=== PATIENT | female | born 1965 | race Caucasian/White ===

== ENCOUNTER 2017-05-27 02:10 | Emergency (ER) | payer SELFPAY ==
[2017-05-27 02:21] VITALS: BMI 25.8
[2017-05-27] MEDS ORDERED: ONDANSETRON 4 MG/2 ML VIAL IVPUSH ONE (02:25)
[2017-05-27] MEDS ORDERED: KETOROLAC TROMETHAMINE 15 MG/ML VIAL IVPUSH ONE (02:25)
[2017-05-27] MEDS ORDERED: SODIUM CHLORIDE 1,000 ML IV STA (02:25)
--- NOTE | 2017-05-27 02:28 | PDOC ---
History of Present Illness - General Chief Complaint: Cold Symptoms Stated Complaint: FLU LIKE SYMPTOMS Time Seen by Provider: 05/27/17 02:24 - History of Present Illness Initial Comments: 05/27/17 02:37 Ms. Hemphill is a 51 yo female w/ pmh of DMII, HTN, HLD who presents with 2 day history of body aches, fevers, chills, nausea, and vomiting. She reports she has been unable to keep anything down for the past day and that starting around 7 last night she began to have midline chest pain. She reports it has been constant since it began. The patient denies shortness of breath, headache and dizziness. Denies diarrhea and constipation. Denies dysuria, frequency, urgency and hematuria. Allergies: NKDA Past History - Past Medical History Allergies/Adverse Reactions: Allergies Allergy/AdvReac Type Severity Reaction Status Date / Time No Known Allergies Allergy Verified 05/27/17 02:18 Home Medications: Ambulatory Orders Amlodipine Besylate/Benazepril [Lotrel 5-40 mg Capsule] 1 each PO DAILY Gabapentin [Neurontin] 300 mg PO Q8H 05/05/12 Pioglitazone HCl [Actos] 45 mg PO DAILY@0700 05/05/12 Atorvastatin Ca [Lipitor] 40 mg PO HS 05/27/17 Ferrous Sulfate 325 mg PO DAILY 05/27/17 Pantoprazole Sodium 40 mg PO DAILY 05/27/17 Sitagliptin Phos/Metformin HCl [Janumet 50-1,000 mg Tablet] 1 each PO DAILY 03/03 COPD: No Diabetes: Yes HTN: Yes Hypercholesterolemia: Yes - Suicide/Smoking/Psychosocial Hx Smoking Status: No Smoking History: Never smoked Have you smoked in the past 12 months: No Number of Cigarettes Smoked Daily: 0 Information on smoking cessation initiated: No Hx Alcohol Use: No Drug/Substance Use Hx: No Substance Use Type: None Review of Systems - Review of Systems Comments:: 05/27/17 02:41 GENERAL/CONSTITUTIONAL: +Fever/chills as described. No weakness. HEAD, EYES, EARS, NOSE AND THROAT: No change in vision. No ear pain or discharge. No sore throat. CARDIOVASCULAR: +Midline chest pain. No shortness of breath RESPIRATORY: No cough, wheezing, or hemoptysis. GASTROINTESTINAL: +Nausea with vomiting after eating for the past day. No diarrhea or constipation. GENITOURINARY: No dysuria, frequency, or change in urination. MUSCULOSKELETAL: +Body aches for the last 2 days SKIN: No rash NEUROLOGIC: No headache, vertigo, loss of consciousness, or change in strength/ sensation. ENDOCRINE: No increased thirst. No abnormal weight change HEMATOLOGIC/LYMPHATIC: No anemia, easy bleeding, or history of blood clots. ALLERGIC/IMMUNOLOGIC: No hives or skin allergy. *Physical Exam - Vital Signs Last Vital Signs Temp Pulse Resp BP Pulse Ox 97.9 F 81 18 130/76 97 05/27/17 02:19 05/27/17 02:19 05/27/17 02:19 05/27/17 02:19 05/27/17 02:19 - Physical Exam Comments: 05/27/17 02:43 GENERAL: +Patient appears acutely ill. Awake, alert, and fully oriented HEAD: No signs of trauma, normocephalic, atraumatic EYES: PERRLA, EOMI, sclera anicteric, conjunctiva clear ENT: Auricles normal inspection, hearing grossly normal, nares patent, oropharynx clear without exudates. Moist mucosa NECK: Normal ROM, supple, no lymphadenopathy, JVD, or masses LUNGS: No distress, speaks full sentences, clear to auscultation bilaterally HEART: +Reproducible midline chest pain. Regular rate and rhythm, normal S1 and S2, no murmurs, rubs or gallops, peripheral pulses normal and equal bilaterally. ABDOMEN: Soft, nontender, normoactive bowel sounds. No guarding, no rebound. No masses EXTREMITIES: Normal inspection, Normal range of motion, no edema. No clubbing or cyanosis. NEUROLOGICAL: Cranial nerves II through XII grossly intact. Normal speech, normal gait, no focal sensorimotor deficits SKIN: Warm, Dry, normal turgor, no rashes or lesions noted. ED Treatment Course - LABORATORY CBC & Chemistry Diagram: 05/27/17 02:38 05/27/17 02:38 Medical Decision Making - Medical Decision Making 05/27/17 03:48 Ms. Hemphill is a 51 yo female w/ pmh as described. Patient ill appearing. Workup begun with basic labs as well as cardiac profile, EKG, and troponins for chest pain. - CXR revealed bilateral pneumonia. Labs otherwise grossly wnl. Will admit patient for inpatient ABX treatment under observation as patient currently unable to keep anything down PO. 05/27/17 06:52 Patient signed out to Dr. Aparicio for further evaluation. *DC/Admit/Observation/Transfer Diagnosis at time of Disposition: Pneumonia Qualifiers: Pneumonia type: due to unspecified organism Laterality: bilateral Lung location : unspecified part of lung Qualified Code(s): J18.9 - Pneumonia, unspecified organism - Referrals - Patient Instructions - Post Discharge Activity
--- NOTE | 2017-05-27 02:33 | PDOC ---
Attending Attestation - Medical Decision Making 05/27/17 03:44 EXAM: CHEST PA \T\ LAT HISTORY: Cough and pneumonia COMPARISON: None. FINDINGS: The cardiomediastinal silhouette is normal. Bilateral infiltrates are noted, sparing the upper lobes, suspicious for pneumonia. No pleural effusion.. The bones and soft tissues are normal. IMPRESSION: Suspected bilateral pneumonia. Read by: Dhiraj Watts MD <Ricardo Rodriguez - Last Filed: 05/27/17 03:44> - Resident Resident Name: Richie Arellano - ED Attending Attestation I have performed the following: I have examined & evaluated the patient, The case was reviewed & discussed with the resident, I agree w/resident's findings & plan - HPI HPI: 05/27/17 03:53 Pt comes with cough and SOB and flu like symptoms. She ate cereal and them vomited her lunch up. She was unable to eat sonce, just a bit of soup. Pt works in a [employer] and she states that she was extremely SOB at work. Here she is resting in the bed, breathing easily at rest. - Physicial Exam PE: 05/27/17 03:54 Agree with resident exam - Medical Decision Making 05/27/17 03:54 Pt will be admitted to hospitalist service. Labs and blood cultures pending. IV abx will be given <Nelsy Schulte - Last Filed: 05/27/17 04:03> Attestations - Attestations 05/27/17 03:44 Documentation prepared by Ricardo Rodriguez, acting as medical sales associate for Nelsy Schulte MD. <Ricardo Rodriguez - Last Filed: 05/27/17 03:44>
[2017-05-27] MEDS ORDERED: ONDANSETRON 4 MG/2 ML VIAL ONE (02:47)
[2017-05-27] MEDS ORDERED: KETOROLAC TROMETHAMINE 15 MG/ML VIAL ONE (02:47)
[2017-05-27 02:51] LABS: BASO % 0.1 % (0-2.0); EOS % 2.9 % (0-4.5); HEMOGLOBIN 11.1 GM/dL (10.7-15.3); LYMPH % 17.1 % (8-40); MCH 28.4 pg (25.7-33.7); MCHC 32.6 g/dl (32.0-36.0); MEAN CELL VOLUME 87.2 fl (80-96); MEAN PLT VOLUME 9.3 fl (7.5-11.1); MONO % 3.9 % (3.8-10.2); PLATELET COUNT 171 K/MM3 (134-434); RDW 14.4 % (11.6-15.6); WHITE BLOOD COUNT 6.2 K/mm3 (4.0-10.0)
[2017-05-27 03:10] LABS: ALBUMIN 3.9 g/dl (3.4-5.0); ALK PHOS 69 U/L (45-117); ANION GAP 8 (8-16); BLOOD UREA NITROGEN 36 mg/dL (7-18); CALCIUM 9.1 mg/dL (8.5-10.1); CHLORIDE 107 mmol/L (98-107); CO2 25 mmol/L (21-32); GLUCOSE,RANDOM 89 mg/dL (74-106); POTASSIUM 3.9 mmol/L (3.5-5.1); SGOT/AST 14 U/L (15-37); SGPT/ALT 21 U/L (12-78); SODIUM 140 mmol/L (136-145); TOT PROT 7.2 g/dl (6.4-8.2)
[2017-05-27] MEDS ORDERED: AZITHROMYCIN IVPB 500 MG in DEXTROSE 5%-WATER - 250 ML IVPB ONE (03:43)
[2017-05-27] MEDS ORDERED: CEFTRIAXONE 1 GM in DEXTROSE 5%-WATER - 50 ML IVPB ONE (03:43)
[2017-05-27] MEDS ORDERED: CEFTRIAXONE 1 GM/50 ML BAG ONE (04:01)
[2017-05-27] MEDS ORDERED: AZITHROMYCIN IVPB 250 ML IVPB ONE (04:01)
--- NOTE | 2017-05-27 07:04 | PDOC ---
*Physical Exam - Vital Signs Last Vital Signs Temp Pulse Resp BP Pulse Ox 97.9 F 81 18 130/76 99 05/27/17 02:19 05/27/17 02:19 05/27/17 02:19 05/27/17 02:19 05/27/17 03:06 05/27/17 07:03 51 YOF who has bilateral PNA and n/v, initial vitals wnl. ED Treatment Course - LABORATORY CBC & Chemistry Diagram: 05/27/17 02:38 05/27/17 02:38 - ADDITIONAL ORDERS Additional order review: Laboratory Results 05/27/17 05/27/17 05/27/17 04:00 02:38 02:38 Sodium 140 Potassium 3.9 Chloride 107 Carbon Dioxide 25 Anion Gap 8 BUN 36 H Creatinine 1.0 Creat Clearance w eGFR 58.00 Random Glucose 89 Lactic Acid 0.6 Calcium 9.1 Total Bilirubin 1.0 AST 14 L ALT 21 Alkaline Phosphatase 69 Creatine Kinase 117 Troponin I < 0.02 Total Protein 7.2 Albumin 3.9 05/27/17 02:38 RBC 3.90 MCV 87.2 MCHC 32.6 RDW 14.4 MPV 9.3 Neutrophils % 76.0 Lymphocytes % 17.1 Monocytes % 3.9 Eosinophils % 2.9 Basophils % 0.1 - Medications Given in the ED: ED Medications Discontinued Medications Generic Name Dose Route Start Last Admin Trade Name Freq PRN Reason Stop Dose Admin Sodium Chloride 1,000 mls @ 1,000 mls/hr 05/27/17 02:25 05/27/17 02:53 Normal Saline - IV 05/27/17 03:24 1,000 mls/hr ASDIR STA Administration Azithromycin 500 mg/ Dextrose 250 mls @ 250 mls/hr 05/27/17 03:43 05/27/17 04 :17 IVPB 05/27/17 04:42 250 mls/hr ONCE ONE Administration Ceftriaxone Sodium 1 gm/ 50 mls @ 100 mls/hr 05/27/17 03:43 05/27/17 04:06 Dextrose IVPB 05/27/17 04:12 100 mls/hr ONCE ONE Administration Ketorolac Tromethamine 15 mg 05/27/17 02:25 05/27/17 02:54 Toradol Injection - IVPUSH 05/27/17 02:26 15 mg ONCE ONE Administration Ondansetron HCl 4 mg 02/11/18 02:25 05/27/17 02:54 Zofran Injection IVPUSH 05/27/17 02:26 4 mg ONCE ONE Administration *DC/Admit/Observation/Transfer Diagnosis at time of Disposition: Pneumonia Qualifiers: Pneumonia type: due to unspecified organism Laterality: bilateral Lung location : unspecified part of lung Qualified Code(s): J18.9 - Pneumonia, unspecified organism - Discharge Dispostion Disposition: HOME Condition at time of disposition: Stable Admit: No - Prescriptions Prescriptions: Azithromycin 250 mg PO DAILY #5 tablet - Referrals - Patient Instructions Printed Discharge Instructions: DI for Pneumonia -- Adult Additional Instructions: You were seen in the ER for pneumonia. Your lab work was not concerning, and your vital signs are stable. We believe you are safe to go home and be treated as an outpatient. Please leaf size picker the prescription for antibiotics that we are sending to your pharmacy and take the whole prescription, whether or not you feel better. Take Tylenol or Motrin for pain or fever. Please follow up with your regular doctor or return to the ER for any new or worsening symptoms like chest pain, shortness of breath that does not improve with rest, or other symptoms. - Post Discharge Activity Forms/Work/School Notes: Back to Work
[2017-05-27 07:08] VITALS: TEMP 98.2
--- NOTE | 2017-05-27 08:40 | EKG ---
Test Reason : Blood Pressure : / mmHG Vent. Rate : 072 BPM Atrial Rate : 072 BPM P-R Int : 200 ms QRS Dur : 090 ms QT Int : 396 ms P-R-T Axes : 060 004 050 degrees QTc Int : 433 ms NORMAL SINUS RHYTHM POSSIBLE ANTERIOR INFARCT , AGE UNDETERMINED ABNORMAL ECG NO PREVIOUS ECGS AVAILABLE Confirmed by BEN FARNSWORTH MD ([id number]) on 05/27/2017 8:40:07 AM Referred By: Confirmed By:BEN FARNSWORTH MD
[2017-05-27 08:44] VITALS: BP 128/72; PULSE 83
== END 2017-05-27 10:15 | disposition home or self-care (01) ==
LOC: JER 02:10
PROC: 3E0337Z Introduction of Electrolytic and Water Balance Substance into Peripheral Vein, Percutaneous Approach (ICD-10-PCS; principal; 2017-05-27)
PROC: 3E03329 Introduction of Other Anti-infective into Peripheral Vein, Percutaneous Approach (ICD-10-PCS; 2017-05-27)
PROC: 3E03329 Introduction of Other Anti-infective into Peripheral Vein, Percutaneous Approach (ICD-10-PCS; 2017-05-27)
PROC: 3E033GC Introduction of Other Therapeutic Substance into Peripheral Vein, Percutaneous Approach (ICD-10-PCS; 2017-05-27)
PROC: 3E0333Z Introduction of Anti-inflammatory into Peripheral Vein, Percutaneous Approach (ICD-10-PCS; 2017-05-27)
DX: J18.9 Pneumonia, unspecified organism (principal); I10 Essential (primary) hypertension; E11.9 Type 2 diabetes mellitus without complications; Z79.84 Long term (current) use of oral hypoglycemic drugs; E78.00 Pure hypercholesterolemia, unspecified
CPT/HCPCS: 36415; 71046-TC-FY; 80053; 82550; 83605; 84484; 85025; 87040; 93005; 93010; 99285-25

== ENCOUNTER 2019-04-04 11:23 | Emergency (ER) | payer SELFPAY ==
[2019-04-04 11:46] VITALS: BMI 25.1
--- NOTE | 2019-04-04 11:49 | PDOC ---
History of Present Illness - General Chief Complaint: Pain Stated Complaint: ABDOMINAL PAIN Time Seen by Provider: 04/04/19 11:25 History Source: Patient Exam Limitations: No Limitations - History of Present Illness Initial Comments: 04/04/19 11:51 Ms. Hemphill is a 53 yo F who presents to the ER with nausea, vomiting and diarrhea Pt states she was in her usual state of health until yesterday She was at work yesterday and noted diarrhea - loose watery stools, 6-7 times, non bloody, non mucoid Today, she began to have vomiting, she estimates 5 times, non bloody The last episode of emesis is bilious No fevers or chills No ill contacts No raw shell fish or rare meat No travel out of the country PMH: NIDDM, HTN, HLD PSH: Tubal ligation Meds: see MAR ALL: NKDA Social: denies alcohol, drug, cigarette use ROS: GENERAL/CONSTITUTIONAL: Yes: loss of appetite No: fever, chills, weakness HEAD, EYES, EARS, NOSE AND THROAT: No: change in vision, ear pain, discharge, sore throat, throat swelling. CARDIOVASCULAR: No: chest pain, lightheadedness, palpitations, syncope RESPIRATORY: No: cough, shortness of breath, wheezing, hemoptysis, stridor. GASTROINTESTINAL: Yes: nausea, vomiting, abdominal pain, diarrhea GENITOURINARY: No: dysuria, hematuria, frequency, urgency, flank pain. MUSCULOSKELETAL: No: back pain, neck pain, joint pain, muscle swelling or pain SKIN AND BREASTS: No: lesions, pallor, rash or easy bruising. NEUROLOGIC: No: headache, vertigo, paresthesias, weakness ENDOCRINE: No: unexplained weight gain or loss HEMATOLOGIC/LYMPHATIC: No: anemia, easy bleeding, swelling nodes PE: GENERAL: The patient is in no acute distress. HEAD: Normal EYES: PERRLA, EOMI, sclera anicteric, conjunctiva clear. ENT: Ears normal, nares patent, oropharynx clear without exudates. Moist mucous membranes. NECK: Normal range of motion, supple LUNGS: Breath sounds equal, clear to auscultation bilaterally. No wheezes, and no crackles. HEART:Regular rate and rhythm, normal S1 and S2 without murmur, rub or gallop. ABDOMEN: Soft, LLQ tenderness to palpation, voluntary guarding, no rebound, no abdominal distention EXTREMITIES: Normal range of motion, no edema. NEUROLOGICAL: Cranial nerves II through XII grossly intact. Normal speech. No focal neurological deficits. MUSCULOSKELETAL: Back non-tender to palpation, no CVA tenderness SKIN: Warm, Dry, normal turgor, no rashes or lesions noted. Past History - Past Medical History Allergies/Adverse Reactions: Allergies Allergy/AdvReac Type Severity Reaction Status Date / Time No Known Allergies Allergy Verified 04/04/19 11:37 Home Medications: Ambulatory Orders Amlodipine Besylate/Benazepril [Lotrel 5-40 mg Capsule] 1 each PO DAILY Gabapentin [Neurontin] 300 mg PO Q8H 05/05/12 Atorvastatin Ca [Lipitor] 40 mg PO HS 05/27/17 Pantoprazole Sodium 40 mg PO DAILY 05/27/17 Sitagliptin Phos/Metformin HCl [Janumet 50-1,000 mg Tablet] 1 each PO DAILY 03/03 COPD: No Diabetes: Yes HTN: Yes Hypercholesterolemia: Yes - Psycho Social/Smoking Cessation Hx Smoking Status: No Smoking History: Never smoked Have you smoked in the past 12 months: No Number of Cigarettes Smoked Daily: 0 Hx Alcohol Use: No Drug/Substance Use Hx: No Substance Use Type: None *Physical Exam - Vital Signs Last Vital Signs Temp Pulse Resp BP Pulse Ox 98.2 F 75 18 139/89 98 04/04/19 11:24 04/04/19 11:24 04/04/19 11:24 04/04/19 11:24 04/04/19 11:24 ED Treatment Course - LABORATORY CBC & Chemistry Diagram: 04/04/19 12:00 04/04/19 11:56 Medical Decision Making - Medical Decision Making 04/04/19 12:15 Pt presents with a complaint of abdominal pain, nausea vomiting and diarrhea DD: colitis, diverticulitis, SBO, gastritis, biliary pathology less likely, appy unlikely given pain location Will do: labs CT IVF Anti emetics Tylenol for pain Re assess 04/04/19 12:41 Laboratory Tests 04/04/19 04/04/19 12:00 12:04 WBC 7.3 Hgb 11.3 Hct 34.7 Plt Count 225 Urine Blood Negative Urine Nitrite Negative 04/04/19 17:34 CT concerning for multiple noncalcified pleural and lung based nodules AND multiple calcified mediastinal lymph adenopathy Pt reports last PPD 20 years ago? Last CXR 1 year ago No cough or hemoptysis 20 pound weight loss over 2 months ? fevers vs hot flashes 04/04/19 18:45 BEST PHONE NUMBER [phone] 04/04/19 18:45 Discharge - Discharge Information Problems reviewed: Yes Clinical Impression/Diagnosis: Multiple nodules of lung Condition: Stable Disposition: AGAINST MEDICAL ADVICE - Admission No - Follow up/Referral - Patient Discharge Instructions Patient Printed Discharge Instructions: DI for Pulmonary Nodule Additional Instructions: Joby Thank you for coming in to the ER today Your CT scan is abnormal Please review the copies of your tests It is hard to say the cause of these abnormalities but... it could be - TB - Sarcoidosis - Cancer You will need PROMPT follow up for this YOU WILL NEED TO FOLLOW UP NEXT WEEK Please return to the ER for fevers, chills, nausea, vomiting, weight loss or any other concerns or complaints - Post Discharge Activity Work/Back to School Note: Back to Work
[2019-04-04] MEDS ORDERED: SODIUM CHLORIDE 1,000 ML IV STA (11:50)
[2019-04-04] MEDS ORDERED: ONDANSETRON 4 MG/2 ML VIAL IVPB ONE (11:50)
[2019-04-04] MEDS ORDERED: ACETAMINOPHEN 1000 MG/100 ML VIAL (NON FORMULARY) IVPB ONE (11:50)
[2019-04-04] MEDS ORDERED: ONDANSETRON 4 MG/2 ML VIAL ONE (11:59)
[2019-04-04] MEDS ORDERED: ACETAMINOPHEN INJECTION 100 ML IVPB ONE (11:59)
[2019-04-04 12:11] LABS: HEMOGLOBIN 11.3 GM/dl (10.7-15.3); RDW 14.4 % (11.6-15.6)
[2019-04-04 12:21] LABS: BASO % 0.5 % (0-2.0); EOS % 2.9 % (0-4.5); HEMATOCRIT 34.7 % (32.4-45.2); LYMPH % 23.8 % (8-40); MCH 28.4 pg (25.7-33.7); MCHC 32.7 g/dl (32.0-36.0); NEUT % 66.8 % (42.8-82.8); PLATELET COUNT 225 K/MM3 (134-434); RBC 3.98 M/mm3 (3.60-5.2); WHITE BLOOD COUNT 7.3 K/mm3 (4.0-10.8)
[2019-04-04 12:48] LABS: ALBUMIN 4.3 g/dl (3.4-5.0); BILIRUBIN,TOTAL 1.3 mg/dl (0.2-1); CALCIUM 9.5 mg/dl (8.5-10); CREATININE 1.2 mg/dl (0.55-1.3); POTASSIUM 3.9 mmol/L (3.5-5.1); TOT PROT 7.4 g/dl (6.4-8.2)
[2019-04-04 13:31] LABS: EPITHELIAL CELLS FEW /hpf
[2019-04-04] MEDS ORDERED: TUBERCULIN PPD 5 TU/0.1ML SYRINGE (IN PATIENT USE ONLY) ID ONE ×2 (18:23→18:55)
[2019-04-04 19:19] VITALS: BP 124/76; PULSE 66; TEMP 98
== END 2019-04-04 19:42 | disposition home or self-care (01) ==
LOC: FER 11:23
PROC: 3E033NZ Introduction of Analgesics, Hypnotics, Sedatives into Peripheral Vein, Percutaneous Approach (ICD-10-PCS; principal; 2019-04-04)
PROC: 3E033GC Introduction of Other Therapeutic Substance into Peripheral Vein, Percutaneous Approach (ICD-10-PCS; 2019-04-04)
PROC: 3E0337Z Introduction of Electrolytic and Water Balance Substance into Peripheral Vein, Percutaneous Approach (ICD-10-PCS; 2019-04-04)
DX: R91.8 Other nonspecific abnormal finding of lung field (principal); R11.2 Nausea with vomiting, unspecified; R19.7 Diarrhea, unspecified; R10.9 Unspecified abdominal pain; I10 Essential (primary) hypertension; E11.9 Type 2 diabetes mellitus without complications; E78.00 Pure hypercholesterolemia, unspecified
CPT/HCPCS: 36415; 71250-TC; 74177-TC; 80053; 81003; 81015; 82150; 82550; 83690; 84484; 85025; 87086; 99283-25; J0131; J7030